=== PATIENT | male | born 1940 | race Two or more races ===

== ENCOUNTER 2017-12-20 08:10 | Inpatient (IN) | payer OTHER ==
[~2017-12-20] VITALS: Ht 167.6 cm; Wt 56.7 kg
== END 2017-12-23 19:25 | disposition home or self-care (01) | DRG 330 ==
LOC: ER 08:10 → SEC-K 10:52 → MEDI 20:28
PROVIDERS: Colon & Rectal Surgery
PROC: 0DQN4ZZ Repair Sigmoid Colon, Percutaneous Endoscopic Approach (ICD-10-PCS; 2017-12-20)
PROC: 07TC4ZZ Resection of Pelvis Lymphatic, Percutaneous Endoscopic Approach (ICD-10-PCS; 2017-12-20)
PROC: 0DTN4ZZ Resection of Sigmoid Colon, Percutaneous Endoscopic Approach (ICD-10-PCS; 2017-12-20)
PROC: 0DJD8ZZ Inspection of Lower Intestinal Tract, Via Natural or Artificial Opening Endoscopic (ICD-10-PCS; 2017-12-20)
PROC: 0DTP4ZZ Resection of Rectum, Percutaneous Endoscopic Approach (ICD-10-PCS; principal; 2017-12-20 15:30)
DX: C19 Malignant neoplasm of rectosigmoid junction (principal); K94.09 Other complications of colostomy; Z85.038 Personal history of other malignant neoplasm of large intestine; D50.0 Iron deficiency anemia secondary to blood loss (chronic)

== ENCOUNTER 2018-02-13 15:07 | Outpatient (CLI) | payer OTHER | END 2018-02-13 15:14 | disposition home or self-care (01) | LOC: LAB 15:07 | DX: C19 Malignant neoplasm of rectosigmoid junction (principal); Z85.038 Personal history of other malignant neoplasm of large intestine; K92.1 Melena; K94.09 Other complications of colostomy ==

== ENCOUNTER 2018-02-16 06:10 | Day surgery (SDC) | payer OTHER | END 2018-02-16 12:45 | disposition home or self-care (01) | LOC: CIR.AMB 06:10 | DX: C19 Malignant neoplasm of rectosigmoid junction (principal); D50.0 Iron deficiency anemia secondary to blood loss (chronic); K94.09 Other complications of colostomy | CPT/HCPCS: 36561; C1751 ==

== ENCOUNTER 2019-03-25 11:36 | Outpatient (CLI) | payer OTHER | END 2019-03-25 11:44 | disposition home or self-care (01) | LOC: RAD 11:36 → LAB 11:36 | DX: K92.1 Melena (principal); C19 Malignant neoplasm of rectosigmoid junction; Z85.038 Personal history of other malignant neoplasm of large intestine; K94.09 Other complications of colostomy; I10 Essential (primary) hypertension; Z08 Encounter for follow-up examination after completed treatment for malignant neoplasm ==

== ENCOUNTER 2019-03-27 09:09 | Day surgery (SDC) | payer OTHER | END 2019-03-27 16:55 | disposition home or self-care (01) | LOC: CIR.AMB 09:09 | DX: C19 Malignant neoplasm of rectosigmoid junction (principal) | CPT/HCPCS: 36561; 36590; C1751 ==

== ENCOUNTER 2019-04-26 08:44 | Day surgery (SDC) | payer OTHER | END 2019-04-26 14:40 | disposition home or self-care (01) | LOC: AMB-ENDOS 08:44 | DX: D12.8 Benign neoplasm of rectum (principal); K64.1 Second degree hemorrhoids ==